=== PATIENT | female | born 1930 | race Caucasian/White ===

== ENCOUNTER 2016-10-31 13:01 | Emergency (ER) | payer MEDICARE, OTHER ==
[2016-10-31 11:45] LABS: BASOPHILS 0.1 %; BASOPHILS ABSOLUTE 0.01 10/3/uL (0.0-0.16); EOSINOPHILS 0.9 %; EOSINOPHILS ABSOLUTE 0.08 10/3/uL (0.0-0.53); HEMATOCRIT 43.9 % (36.0-48.0); HEMOGLOBIN 14.6 g/dL (12.0-16.0); IMMATURE GRANULOCYTES 0.2 %; IMMATURE GRANULOCYTES ABSOLUTE 0.02 10/3/uL (0.0-0.11); LYMPHOCYTES 11.7 %; LYMPHOCYTES ABSOLUTE 1.08 10/3/uL (0.67-4.30); MEAN CORPUS HGB CONC 33.3 g/dL (32.0-36.0); MEAN CORPUSCULAR HEMOGLOB 29.5 pg (26.0-34.0); MEAN CORPUSCULAR VOLUME 88.7 fL (80-100); MONOCYTES ABSOLUTE 0.83 10/3/uL (0.21-1.20); NEUTROPHILS 78.1 %; NEUTROPHILS ABSOLUTE 7.19 10/3/uL (2.02-8.40); PLATELET COUNT 286 10/3/uL (150-400); RBC DISTRIBUTION WIDTH 14.4 % (12.0-16.0); RED CELL COUNT 4.95 10/6/uL (4.0-5.6)
[2016-10-31 11:47] LABS: ER CBC TAT 0 Hrs 02 Mins; MANUAL DIFF NO %; WHITE BLOOD CELLS 9.2 10/3/uL (4.5-10.5)
[2016-10-31 11:53] LABS: ASCORBIC ACID (UR NOT ORDER) NEG (NEG); BILIRUBIN, URINE NEGATIVE (NEG); ER URINALYSIS TAT 0 Hrs 12 Mins; KETONE, URINE NEGATIVE (NEG); LEUKOCYTE ESTERASE(NOT OR NEG (NEG); NITRITE (URINE) NEG (NEG); WBC (NOT ORDERED) (RFLEX) 1 (0-5)
[2016-10-31 12:02] LABS: ALBUMIN 3.5 G/DL (3.5-5.0); ALKALINE PHOSPHATASE 58 U/L (45-117); BUN (BLOOD UREA NITROGEN) 13 MG/DL (6-23); CHLORIDE, SERUM 104 MMOL/L (96-112); CO2 (CARBON DIOXIDE) 30 MMOL/L (24-34); CREATININE 0.98 MG/DL (0.55-1.02); GFR AFRICAN AMERICAN 61 ML/MIN (>=60); GFR NON AFRICAN AMERICAN 53 ML/MIN (>=60); GLOBULIN 3.6 G/DL (2.5-4.1); GLUCOSE, SERUM 142 MG/DL (60-99); POTASSIUM, SERUM 3.4 MMOL/L (3.5-5.3); SGOT(AST) 12 U/L (5-40); SGPT(ALT) 16 U/L (5-65); SODIUM, SERUM 142 MMOL/L (135-148); TOTAL PROTEIN 7.1 G/DL (6.0-8.5)
[2016-10-31 12:04] LABS: LACTATE 1.6 MMOL/L (0.3-2.4)
[~2016-10-31 13:01] MED LIST: ACET500CAP PO; ASAB PO; CADUET5 MG/20 MG PO; CITRACAL PO; FLONASE NAS; HYZAAR 50/12.51 TAB PO; I40 PO; MULTIPLE VIT PO; NEUR300 PO; PRAVAC PO; PREV30 PO; PRILO PO; PRINZIDE1 TA1 PO; SALONPAS-HOT TOP; TYLENOL ARTH650 MG PO; VITD PO; Z100 PO
== END 2016-10-31 14:27 | disposition home or self-care (01) ==
LOC: ER 13:01
PROVIDERS: Nurse Practitioner
DX: K57.32 Diverticulitis of large intestine without perforation or abscess without bleeding (principal); I10 Essential (primary) hypertension; Z90.710 Acquired absence of both cervix and uterus; Z79.82 Long term (current) use of aspirin; Z79.899 Other long term (current) drug therapy
CPT/HCPCS: 74176; 80053; 81001; 83605; 83690; 85025; 99284; A9270-GY

== ENCOUNTER 2017-03-09 16:46 | Inpatient (IN) | payer MEDICARE, OTHER ==
[~2017-03-09] VITALS: Ht 162.6 cm; Wt 81.8 kg
--- NOTE | ~2017-03-09 | IDS ---
Interim Discharge Summary [facility] [address] [place]. [address] NAME: CAIT SOLOMON : 32 STATUS : ADM IN PAT#: [id number] AGE: 86 ADM/REG DATE : 03/09/17 MR#: [id number] REPORT SERV DATE: 03/15/17 DICTATED BY: RAJWINDER JIMENEZ DATE: 03/15/17 REPORT STATUS : Draft TRANSCRIBED BY: MODTracie DATE: 03/15/17 ADMISSION DATE: 03/09/2017 DISCHARGE DATE: Date that I started taking care of this patient is 03/12/2017. CONDITION OF THIS PATIENT: Stable for now. CODE STATUS: DNR. DIAGNOSES: 1. Acute severe colitis. 2. Acute Clostridium difficile colitis. 3. The patient is on TPN for bowel rest/bowel diversion, right now. 4. Acute encephalopathy secondary to colitis, infection, sepsis, and also from moderate dementia. 5. 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 6. 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 7. History of colon cancer status post recent colon surgery. CONSULTS OBTAINED: 1. Per family request, Infectious Disease has been consulted and they prefer seeing Dr. Bashir's who will see them tomorrow. 2. Neurology has been consulted for severe psychotic features associated with dementia - the patient has significant sundowning. BRIEF HOSPITAL COURSE: The patient is an 86-year-old female who was admitted with signs and symptoms as outlined in history and physical exam. The day that I took over the patient on 4th floor, the patient was extremely confused, agitated, tachycardic, and febrile with all signs and symptoms pointing to severe sepsis. The patient was already diagnosed with acute, severe, diffuse C. diff colitis. So, I had to move her to [facility] for a day or two to handle this issue and once we kept her on bowel rest and started her on TPN and we were able to get vancomycin p.o. by mouth only, the patient's sepsis is somewhat resolved. However, her gout flared up and she had severe pain and stiffness in the left hand and also the left leg. The patient is already on allopurinol. This was continued and I also started her on low-dose Solu-Medrol. With this, her acute attack of gout completely resolved. She was moved back to the floor and she was improving, but again took a turn downhill in the last day or so with worsening mental status and becoming extremely agitated, psychotic, confused, and seeing things. I honestly think that this is probably a combination of an overwhelming infection elsewhere in the body and also part of her chronic dementia process. The patient's code status is a DNR and we continue to treat her with vancomycin, but her daughter who is a licensed social worker has requested that we consult Dr. Bashir, Infectious Disease for overwhelming C. diff colitis and also Neurology for the worsening mental status. I have accomplished both and this patient will be taken over by one of my colleagues on 03/16/2017. Interim Discharge Summary [address] [place]. [address] NAME: CAIT SOLOMON : 32 STATUS : ADM IN PAT#: [id number] AGE: 86 ADM/REG DATE : 03/09/17 MR#: [id number] REPORT SERV DATE: 03/15/17 DICTATED BY: RAJWINDER JIMENEZ DATE: 03/15/17 REPORT STATUS : Draft TRANSCRIBED BY: NEISHA DATE: 03/15/17 MASTER/NEISHA Rajwinder Jimenez M.D. / [id number] CC: Luiz Hernandez M.D.
--- NOTE | ~2017-03-09 | DS ---
Discharge Summary [facility] [address] [facility] [place]. [address] NAME: CAIT SOLOMON : 32 STATUS : DIS IN PAT#: [id number] AGE: 86 ADM/REG DATE : 03/09/17 MR#: [id number] REPORT SERV DATE: 03/26/17 DICTATED BY: RAJWINDER JIMENEZ DATE: 03/25/17 REPORT STATUS : Draft TRANSCRIBED BY: MODL DATE: 03/25/17 ADMISSION DATE: 03/09/2017 DISCHARGE DATE: 03/25/2017 CODE STATUS: The patient is DNR. DISPOSITION: The patient is being transferred to custodial facility with hospice. DIAGNOSES: 1. Acute on chronic encephalopathy, probably toxic metabolic and also part of advanced dementia with psychosis - this is controlled with medications. 2. Chronic encephalopathy secondary to worsening dementia with psychotic features - controlled with Seroquel and p.r.n. Ativan. 3. Recent diagnosis of Clostridium difficile colitis - diarrhea has resolved and this is stable and the patient continues to be on p.o. vancomycin for this. She was on IV Flagyl as she had poor oral intake and now IV Flagyl has been stopped. 4. Recent history of colon cancer status post partial colon resection for the colon cancer. 5. Vbdd-ze-aqsusnqd dementia with acute advancement within the last few months. 6. Sepsis secondary to Clostridium difficile colitis, which has resolved. 7. Malnutrition - The patient has received IV TPN for close to two weeks, and now per family request, she is only on soft pureed diet by mouth and on Ensure for nutrition. BRIEF HOSPITAL COURSE: The patient is an 86-year-old female patient, who was admitted on 03/09/2017 with acute encephalopathy secondary to sepsis likely source acute colitis from C diff infection. was noted to have recent C diff also and hence the patient was essentially admitted for this. The patient was started on p.o. vancomycin. However, as the patient was extremely confused and noted to have significant criteria for sepsis upon admission, she was transferred to [facility] for a brief period. The patient improved after she was started on TPN and all oral intake was held. So with bowel rest and TPN and with only oral vancomycin, the patient's condition improved, and she was transferred out of [facility] to a regular floor again. The patient continued to be on TPN. However, her mental status was fluctuating. Hence, Neurology consult was obtained. Neurology diagnosed her with mild-to- moderate baseline dementia with worsening because of multifactorial reasons. Hence, they started her on Exelon patch and also on Remeron. The patient continued to be on Seroquel for agitation and psychosis and also on Ativan for severe agitation and aggressive behavior. She improved with all the above medications. ID was also consulted for the C. diff colitis. Dr. Bashir consulted on the patient, and for a brief period, the patient was also on IV Flagyl as her oral intake was poor. After multiple discussions with family, the patient's code status has been do not resuscitate status. However, upon discussion with family again in the last day or two, both and daughter, Lonny, who is a social media marketer has been updated regarding the patient's condition and situation, and they preferred to have hospice care for the patient. Hence, hospice was consulted appropriately. [facility] and other hospice were consulted per family preference. Hence, family is agreeable to hospice and the patient is being transferred to a long-term Discharge Summary [address] [address] NAME: CAIT SOLOMON : 32 STATUS : DIS IN PAT#: [id number] AGE: 86 ADM/REG DATE : 03/09/17 MR#: [id number] REPORT SERV DATE: 03/26/17 DICTATED BY: RAJWINDER JIMENEZ DATE: 03/25/17 REPORT STATUS : Draft TRANSCRIBED BY: MODTracie DATE: 03/25/17 care facility/SNF with hospice on 03/25/2017. The patient will continue to be on the following medications, vancomycin 125 mg p.o. q.6 hours, duration and dosage to be please determined and advised by ID. Regarding her dementia with psychosis, the patient will continue to be on the following medications; 1. Remeron 15 mg p.o. at bedtime. 2. Exelon patch 4.6 mg topical patch. 3. Seroquel 12.5 mg in the morning and 25 mg at bedtime. 4. Ativan 1 mg p.o. t.i.d. p.r.n. for severe agitation. The patient will continue to stay on a pureed diet at this time and depend on Ensure one can twice a day for nutrition. The patient at present is calm and is not agitated as long as she is on the above regimen. Hence, the patient is being transferred to a custodial facility with the above medications and with hospice care. I have spent about 35 to 40 minutes in coordinating discharge care of this patient including ivey-hv-diij encounter and summarizing this discharge. MASTER/NEISHA Rajwinder Jimenez M.D. / [id number] CC: Luiz Hernandez M.D.
--- NOTE | ~2017-03-09 | HP ---
History And Physical [place] [address] [facility] [place]. [address] NAME: CAIT SOLOMON : 32 STATUS : ADM IN PAT#: [id number] AGE: 86 ADM/REG DATE : 03/09/17 MR#: [id number] REPORT SERV DATE: 03/10/17 DICTATED BY: JEVON [place] DATE: 03/09/17 REPORT STATUS : Draft TRANSCRIBED BY: MODL DATE: 03/09/17 DATE OF ADMISSION: 03/09/2017 CHIEF COMPLAINT: Confusion. HISTORY OF PRESENT ILLNESS: The patient is an 86-year-old female with past medical history of hypertension, colon cancer with recent resection by Dr. Nilesh Rangel at [facility] four weeks ago, who presents after having confusion today, was seen by Dr. Rangel yesterday in her usual state and usual mental state per family, but this morning was more confused. Family reports that she has had diarrhea type episodes with multiple bowel movements over the last week, although, she was on scheduled stool softeners up to four times a day. Took one dose Imodium 48 hours ago and has not had bowel movement all day today, but did have bowel movement yesterday, although, this was more regular. All day today, she has not really had been as interactive, slightly disoriented, was seen by home health, had a fever of 100.6, pulse rate at that time was 96, and normal cardiac, was also noted to have mild rhonchi on the right lower lobe appreciated at this time. Does not have any shortness of breath currently. Symptoms have been constant, mild confusion, no pain radiating symptoms except for on bilateral lower toes which she has acute gout flare which she has had in the last three years. The patient has additionally increased weakness today, mild fever. No chills, shortness of breath. Denies any belly pain. Does not have any cough currently. There are no worsening or relieving symptoms except for time which the patient's mental status has slowly improved, still not at her baseline. REVIEW OF SYSTEMS: Positive per who is at bedside. Otherwise, the patient denies any acute review of systems. PAST MEDICAL HISTORY: Obtained from and on phone call with daughter in [place], who is a social security assessor, Ms. Mukherjee. History of hypertension, but says that she is off blood pressure medications. Colon cancer, recently resected by Dr. Nilesh Rangel. SURGICAL HISTORY: Colon cancer resection, hysterectomy. SOCIAL HISTORY: Accompanied by . No smoking, alcohol, or illicits. EKG: Sinus rhythm, PACs. MEDICATIONS: Slight discrepancy between reported and from family. Allopurinol, Xanax p.r.n. Family denies taking Norvasc anymore, hydrochlorothiazide or Hyzaar. The patient is on vitamin D, Colace which was scheduled four times a day, down to two times a day. Has taken Imodium 48 hours ago. On Neurontin, also declines Remeron, is on Zofran, Protonix, Pravachol, Inderal, and melatonin. ALLERGIES: NO KNOWN DRUG ALLERGIES. PHYSICAL EXAMINATION: History And Physical [address] [address] NAME: CAIT SOLOMON : 32 STATUS : ADM IN [facility]#: [id number] AGE: 86 ADM/REG DATE : 03/09/17 MR#: [id number] REPORT SERV DATE: 03/10/17 DICTATED BY: JEVON [place] DATE: 03/09/17 REPORT STATUS : Draft TRANSCRIBED BY: NEISHA DATE: 03/09/17 VITAL SIGNS: The patient's blood pressure is 121/52, temperature 99.6, pulse 81, respirations 24, O2 sats initially 90 up to 95% on 2 L. GENERAL: Well developed, well nourished. EYES: No scleral icterus. EOMI. Mild dry mucous membranes. Nose, throat, nares patent. Tongue midline. NECK: Supple. CHEST: Equal chest expansion. No increased AP diameter. RESPIRATORY: Clear to auscultation. No wheezes. Mildly decreased in lower lung moseley. CARDIAC: Cap refill less than 2 seconds. Mildly tachycardic. Mild systolic 1/6 ejection murmur. No rubs or gallops. No pedal edema. GI: Soft, nontender. No rebound. Nondistended. No gross irritation or fluid wave. EXTREMITIES: Moves all extremities. Does have redness in bilateral big toes. Mildly tender to flexion. NEURO: Alert to person and family member, but not to situation and place. Moves all extremities. PSYCH: Appropriate mood and affect. SKIN: Warm and dry. Redness at bilateral first digits. LABORATORY DATA: Troponin negative. CBC; WBC count 16.6, H and H 11.5 and 35.4, platelets 425. INR 1.3. CMP: Procalcitonin 0.16. Sodium of 131, potassium 3.5, chloride 96, BUN and creatinine 13 and 0.99, glucose of 107, alkaline phosphatase 66. AST and ALT 23 and 12. Urinalysis, negative leukocyte esterase and nitrites. Lactate 1.3. CT noted for pancolitis, sigmoid diverticulosis, mild gallbladder dilatation, but no gallbladder thickening, parapelvic renal cysts bilaterally. ASSESSMENT AND PLAN: 1. Acute encephalopathy. 2. Pancolitis. 3. Possible sepsis. 4. Acute gout flare. 5. Diarrhea. 6. Mild hypoxia. PLAN: 1. For acute encephalopathy, check ammonia, pancolitis, IV antibiotics, IV fluids, history of C diff exposure with . Monitor oxygen saturation as the patient was mildly hypoxic at 90% on room air, improved to 92% on arrival, ICS. 2. Pancolitis, C diff, stool studies, IV Zosyn given in the emergency room. We will continue. Start vancomycin p.o. until ruled out. 3. Possible sepsis with fever 100.6, respiratory rate 27, WBC count 16,000. Has improved fever profile and respiratory rate. Zosyn started. Lactate within normal limits. We will repeat a.m. chest x-ray. Outside reports noted to have right lower lobe rhonchi, not currently appreciated, but does have decreased respiratory sounds, possible atelectatic. Procalcitonin mildly elevated. Lactate within normal limits. Monitor clinical gout flare, supportive treatment. Additionally, on allopurinol. Check uric acid in a.m. No prednisone secondary to pancolitis. 4. Diarrhea, was recently on stool softeners four times a day due to recent surgery, History And Physical [address] [address] NAME: CAIT SOLOMON : 32 STATUS : ADM IN [facility]#: [id number] AGE: 86 ADM/REG DATE : 03/09/17 MR#: [id number] REPORT SERV DATE: 03/10/17 DICTATED BY: JEVON [place] DATE: 03/09/17 REPORT STATUS : Draft TRANSCRIBED BY: MODL DATE: 03/09/17 decreased to two times a day, taken Imodium approximately 48 hours and has stopped. Having diarrhea, but now has not had a bowel movement today. We will check stool studies due to the pancolitis. Monitor clinical exam and serial lactate. 5. Mild hypoxia. We will check chest x-ray in a.m., two-view. To followup and ICS. I have spoken additionally with the patient's daughter, Ms. Mukherjee, lives in [place], [place], social work, requesting Dr. Bashir consult secondary to history of father having near fatal colitis with C. diff seven years ago, and reports that Dr. Bahsir had explained that the patient may also be at risk in the past and there may need to be additional education to family for acute situation. We will courtesy notify Dr. Bashir for situation. Labs ordered. Contact precautions until C diff ruled out. All questions answered to the patient and family at bedside. Anticipate greater than two midnight inpatient stay. DDN/MODL Jevon [place] MD / [id number] CC: Luiz Hernandez M.D.
--- NOTE | ~2017-03-09 | CN ---
Consultation Report [facility] [address] [place]. [address] NAME: CAIT SOLOMON : 32 STATUS : ADM IN PAT#: [id number] AGE: 86 ADM/REG DATE : 03/09/17 MR#: [id number] REPORT SERV DATE: 03/12/17 DICTATED BY: ERWIN CASH DATE: 03/11/17 REPORT STATUS : Draft TRANSCRIBED BY: MODL DATE: 03/11/17 UROLOGY CONSULT DATE OF CONSULTATION: 03/11/2017 This consult is from Dr. Perez regarding inability to place Slaughter catheter and urinary retention. CHIEF COMPLAINT: They cannot get a tube in ms. HISTORY: This is an 86-year-old woman who was admitted for sepsis. She had a colon resection for colon cancer a month ago. She presented to the emergency room with confusion and diarrhea. She is found to be C diff positive. She has vaginal prolapse. Nursing has been unable to place a Slaughter catheter since last night. Several of the nurses from the catheter team have been unable to place catheter. Postvoid residual urine by bladder scan shows 300 mL in her bladder. Strict I's and O's are necessary due to her septic state. We are called for catheter placement. The patient denies any difficulty voiding; however, she is currently quite ill and is not answering all history questions appropriately. PAST MEDICAL HISTORY: Colon cancer, hypertension, gout, gastroesophageal reflux disease, hyperlipidemia. SURGICAL HISTORY: Colon cancer resection and hysterectomy. MEDICATIONS: On admission were allopurinol, Xanax, Norvasc, vitamin D, Colace, Neurontin, hydrochlorothiazide, Hyzaar, melatonin, Remeron, Zofran, Protonix, Pravachol, and Inderal. ALLERGIES: NO KNOWN DRUG ALLERGIES. SOCIAL HISTORY: She is . Denies any alcohol or tobacco use. REVIEW OF SYSTEMS: VITAL SIGNS: She has been febrile. GENERAL: She is in mild distress. NEUROLOGIC: She is confused. PSYCHIATRIC: She is anxious. GI: As above. : Denies symptoms. MUSCULOSKELETAL: As above. PHYSICAL EXAMINATION: VITAL SIGNS: T-max 100.3, blood pressure 101/51, pulse 110, respirations 21. I's and O's yesterday, 2382 mL in and 404 mL out were recorded. GENERAL: She is in mild distress. NEUROLOGIC: She is alert, but not oriented. Consultation Report [place] [address] [place]. [address] NAME: CAIT SOLOMON : 32 STATUS : ADM IN PAT#: [id number] AGE: 86 ADM/REG DATE : 03/09/17 MR#: [id number] REPORT SERV DATE: 03/12/17 DICTATED BY: ERWIN CASH DATE: 03/11/17 REPORT STATUS : Draft TRANSCRIBED BY: NEISHA DATE: 03/11/17 PSYCHIATRIC: Anxious. HEENT: Facial features symmetric. Eyes, sclerae anicteric. NECK: Supple. LUNGS: Decreased inspiratory effort bilaterally. HEART: Slightly tachycardic. ABDOMEN: Soft, diffusely tender. Bladder not palpable. : Reveals vaginal atrophy with vaginal prolapse which appears to be rectocele or enterocele. She has bilateral lower extremity edema left greater than the right with swelling and erythema in her left foot consistent with gout. LABORATORY STUDIES: Today, her white blood cell count is up to 20.1 from 16.6, hemoglobin is 10.8, hematocrit 32.3, platelets of 380. Her creatinine is 0.69. CT scan showed diffuse colitis. IMPRESSION: Vaginal prolapse with difficult catheter placement. PROCEDURE: The patient was placed in Trendelenburg and then frog-leg position. The area was prepped and draped. Her vaginal prolapse was reduced. A 14-Swedish coude catheter was passed blindly over the top of my hand, which was blocking her vaginal opening. After several attempts, the catheter passed into her bladder. The balloon was inflated with 10 mL of sterile water. The balloon was seated at her bladder neck. Approximately 80 to 100 mL of concentrated urine drained into the bag. The Slaughter catheter was secured to the patient using a cath secure device by nursing. PLAN: 1. Slaughter catheter may be removed at the primary team's discretion. 2. No urologic followup is needed. Thank you for this consult. BONNIE/NEISHA Erwin Cash M.D. / [id number] CC: Tyra Perez M.D.
--- NOTE | ~2017-03-09 | IDS ---
Interim Discharge Summary [facility] [address] [place]. [address] NAME: CAIT SOLOMON : 32 STATUS : ADM IN PAT#: [id number] AGE: 86 ADM/REG DATE : 03/09/17 MR#: [id number] REPORT SERV DATE: 03/19/17 DICTATED BY: JR. BENNETT WILLIAM JOHN DATE: 03/19/17 REPORT STATUS : Draft TRANSCRIBED BY: NEISHA DATE: 03/19/17 ADMISSION DATE: 03/09/2017 DISCHARGE DATE: This is an interim summary covering the time period from 03/16/2017 through 03/19/2017. WORKING DIAGNOSES: Include: 1. Right upper extremity swelling with hand warmth. 2. Nausea, vomiting with some hematemesis, likely Ruby-Erazo tear. 3. Clostridium difficile colitis with leukocytosis. 4. Toxic and metabolic encephalopathy. 5. Poor oral intake, on TPN. 6. Reported history of gout. 7. History of colon cancer status post surgery in December 2016. OPERATIONS PROCEDURES AND TREATMENTS DURING THIS TIME PERIOD: Include: 1. MRI of the brain done 03/16/2017 which showed no evidence of acute intracranial pathology. There was mild age-appropriate volume loss. There were many small areas of perivascular spaces throughout the supratentorial white matter and basal ganglia. There was small mastoid effusion with mild ethmoid effusion and a small parafalcine meningioma. 2. CT of the abdomen and pelvis done 03/18/2017 which showed liquid stools in the rectum. There was prominent presacral soft tissue which was new, possibly representing inflammation. There was no diffuse ileus. 3. Venous Doppler ultrasound of the right upper extremity is pending. DISCUSSION: 1. Regarding the patient's delirium, the patient had previously been on fairly high doses of antipsychotic medication. She underwent an MRI of the brain which showed no acute pathology. Her doses were adjusted to regulate the sleep cycle, and the patient is gradually regaining lucidity. During this time period, she was unable to the eat and was placed on TPN prior to my assumption of care. The patient will be tried on a full liquid diet, if she has fair oral intake, would stop TPN. 2. Regarding the C. diff colitis, the patient is on oral vancomycin. She was unreliably able to swallow the vancomycin. Therefore, she is also on IV Flagyl for now. Recommendation is a four-week taper of vancomycin. 3. Regarding nausea and vomiting, yesterday, the patient had nausea and vomiting with a small amount of blood in the emesis. This likely represents a Ruby-Erazo tear. She has had no decline in her hemoglobin level nor recurrence. The patient had a CT of the abdomen and pelvis which did not show ileus. 4. The patient also has right upper extremity hand swelling. This may represent gout, however, given the difficulties with mental status and nutrition, I have chosen at this point to check an ultrasound to make sure there is not a clot and to address the right hand swelling later if ultrasound is negative. My partner will assume care of this patient in the morning. Interim Discharge Summary [address] [place]. [address] NAME: CAIT SOLOMON : 32 STATUS : ADM IN PAT#: [id number] AGE: 86 ADM/REG DATE : 03/09/17 MR#: [id number] REPORT SERV DATE: 03/19/17 DICTATED BY: JR. BENNETT WILLIAM JOHN DATE: 03/19/17 REPORT STATUS : Draft TRANSCRIBED BY: NEISHA DATE: 03/19/17 ARTHUR/NEISHA Salvador Bennett Jr, MD / [id number] CC: Salvador Bennett Jr, MD Shannon McCallie, M.D.
--- NOTE | ~2017-03-09 | CN ---
Consultation Report [facility] [address] [place]. [address] NAME: CAIT SOLOMON : 32 STATUS : ADM IN PAT#: [id number] AGE: 86 ADM/REG DATE : 03/09/17 MR#: [id number] REPORT SERV DATE: 03/16/17 DICTATED BY: ERASTO BASHIR DATE: 03/16/17 REPORT STATUS : Draft TRANSCRIBED BY: MODL DATE: 03/16/17 INFECTIOUS DISEASE CONSULTATION DATE OF CONSULTATION: 03/16/2017 REASON FOR CONSULTATION: C diff colitis. HISTORY OF PRESENT ILLNESS: This is an 86-year-old female with a past medical history notable for recent diagnosis of colon cancer for which she underwent a surgical therapy about a month ago by Dr. Rangel. She went to [facility] after that and then came home. The history is obtained from the patient's and daughter. They say she had some loose stools for some time after her surgery, but then last week she developed worsening mental status and fever up to 100.6 and was brought to the emergency department at [facility] late on the afternoon of 03/09/2017. She was found to have tachypnea and white blood cell count of 16.1, low-grade fever, and underwent imaging studies that included a CT scan of the abdomen and pelvis, which was consistent with a pancolitis picture. Stool was sent for C diff and returned positive. She has been on oral vancomycin since 03/10/2017. She was in the intermediate care unit and was evaluated by Surgery, but has shown slow improvement. Her fevers have resolved, her diarrhea is improving, and her white blood cell count is finally much improved today, down to 11.1. She continued to have poor mental status and is being evaluated by Neurology for that. She denies pain. The patient apparently received a course of oral antibiotics while at [facility] for urinary tract infection along with perioperative antibiotics until the time of her surgery. PAST MEDICAL HISTORY: Includes hypertension, gout, and hyperlipidemia. PAST SURGICAL HISTORY: Hysterectomy. ALLERGIES: NO KNOWN DRUG ALLERGIES. MEDICATIONS: Present medications in addition oral vancomycin include allopurinol, Colace, Lovenox, Neurontin, insulin, Protonix, and Seroquel. SOCIAL HISTORY: She lives with her of 62 years. Nonsmoker and nondrinker. Prior to her surgery for colon cancer, she was quite independent and did chores in and around the house. Her daughter notes some progressive mild forgetfulness. FAMILY HISTORY: Notable for history of severe C diff colitis in her , otherwise, noncontributory. REVIEW OF SYSTEMS: Difficult to obtain from the patient right now, but as mentioned, she does deny pain including abdominal pain. Her diarrhea is improving. No chest pain or shortness of breath. She has had no bleeding or bruising issues. Consultation Report [facility] [id number] [place]. [address] NAME: CAIT SOLOMON : 32 STATUS : ADM IN PAT#: [id number] AGE: 86 ADM/REG DATE : 03/09/17 MR#: [id number] REPORT SERV DATE: 03/16/17 DICTATED BY: ERASTO BASHIR DATE: 03/16/17 REPORT STATUS : Draft TRANSCRIBED BY: NEISHA DATE: 03/16/17 PHYSICAL EXAMINATION: VITAL SIGNS: The patient weighs 79 kg, afebrile; blood pressure 138/68, it was as low as 83/71 during the early part of the admission; pulse 98, it was as high as 110; respiratory rate 16, it was as high as 24; oxygen saturation 94% on 2 L. GENERAL: She is sitting up in bed. She is awake and alert and does follow simple commands, but has minimal verbal responses to questions. HEAD AND NECK: Extraocular movements are intact. The oral cavity shows no thrush. Neck is supple. LUNGS: Clear to auscultation anteriorly. CARDIAC: Regular rate and rhythm. Normal S1 and S2, with a soft systolic ejection murmur at the left sternal border. ABDOMEN: Bowel sounds are present, but reduced. The abdomen is not significantly distended. Quite soft. No significant tenderness to palpation. : A Slaughter catheter is in place. EXTREMITIES: Show edema of her lower legs and feet. She has a PICC line in her right upper extremity. SKIN: Without rash. LABORATORY STUDIES: White blood cell count today 11.1, hemoglobin 10.0, platelets 338. Creatinine 0.50. Albumin 2.0. Liver function tests are normal. Her prealbumin on 03/11/2017 was less than 3.0; on 02/09/2017, it was 18.9. Microbiology studies on admission, blood cultures were negative. Other stool studies were negative except for the C diff. Blood cultures were obtained on 03/14/2017, one of two sets was positive for coagulase-negative Staph. Urinalysis was negative x2 that day. Imaging studies are as outlined above. 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 IMPRESSION: Clostridium difficile colitis with sepsis on admission. She has improved. She has had no further fever and her white blood cell count has essentially normalized today and her diarrhea seems to be resolving. She does have encephalopathy and is to undergo an MRI of the brain today, but I suspect this is due to the usual inpatient factors in someone who has a poor neurologic reserve. She is though taking her vancomycin. PLAN: 1. We will continue oral vancomycin. Plan a prolonged tapering course over weeks. 2. I would like to try to discontinue the Slaughter and a PICC line soon to decrease her risk of hospital-acquired infection and the need for additional antibiotics. BOLIVAR/NEISHA Erasto Bashir, Consultation Report [address] [place]. [address] NAME: CAIT SOLOMON : 32 STATUS : ADM IN PAT#: [id number] AGE: 86 ADM/REG DATE : 03/09/17 MR#: [id number] REPORT SERV DATE: 03/16/17 DICTATED BY: ERASTO BASHIR DATE: 03/16/17 REPORT STATUS : Draft TRANSCRIBED BY: NEISHA DATE: 03/16/17 Luiz / [id number] CC: Salvador Bennett Jr, MD Shannon McCallie, M.D.
--- NOTE | ~2017-03-09 | CN ---
Consultation Report [facility] [address] [place]. [address] NAME: CAIT SOLOMON : 32 STATUS : ADM IN PAT#: [id number] AGE: 86 ADM/REG DATE : 03/09/17 MR#: [id number] REPORT SERV DATE: 03/16/17 DICTATED BY: DATE: REPORT STATUS : Draft TRANSCRIBED BY: MODL DATE: 03/16/17 NEUROLOGY CONSULTATION DATE OF CONSULTATION: 03/16/2017 REASON FOR CONSULT: Encephalopathy. HISTORY OF PRESENT ILLNESS: This is an 86-year-old female who has had recent diagnosis of colon cancer status post colon resection but has not had any chemotherapy or radiation therapy, presented to [facility] secondary to severe diarrhea for which the patient was diagnosed with C. diff infection and subsequently undergoing treatment. During the hospital stay, the patient was noted to have increasing confusion with the patient being combative, agitated as well as confused, disoriented, and with reports of hallucination. The patient's symptom is currently controlled with Seroquel for which the patient's family reports lethargy with Seroquel and sleepiness. The patient's symptoms appeared to have some waxing and waning characteristic with the patient on 03/15/2017, having had brief episodes of lucidity for which the patient was able to sit by the side of the bed and interact with the family member very briefly but the patient was largely agitated otherwise. The patient's family reports at baseline the patient was noted to have some memory difficulties with the patient seeming to be increasingly forgetful, have difficulties, ask questions over and over again. Definitely having difficulties managing medications. The patient's family it is unclear whether or not the patient is taking the medication as prescribed. The patient seems to be doing okay in certain areas but has difficulties with memory and recent memory recall. The patient seems to have some difficulties with driving and preferred to have drive her instead. The patient otherwise does not have any recent fever or chills or shortness of breath and no other recent changes in medications. The patient was recently in rehab after her colon resection. She is scheduled for Neurology evaluation in June but has not had any formal neurology evaluation or checkup. The patient has family denies any focal weakness but reports bilateral lower extremity edema with the patient baseline does have some chronic left lower extremity edema. REVIEW OF SYSTEMS: Negative except for those mentioned in the HPI. PAST MEDICAL HISTORY: At the time of evaluation, the patient's past medical history is significant for history of hypertension as well as history of recently resected colon cancer, possible gout as well as left lower extremity chronic edema that is recently worse. The patient was also noted to have baseline cognitive difficulties concerning for dementia and history of previous mini stroke in the past. SOCIAL HISTORY: Denies tobacco, alcohol, or recreational drug usage. ALLERGIES: THE PATIENT REPORTS NO KNOWN DRUG ALLERGIES. Consultation Report [address] [place]. [address] NAME: CAIT SOLOMON : 32 STATUS : ADM IN PAT#: [id number] AGE: 86 ADM/REG DATE : 03/09/17 MR#: [id number] REPORT SERV DATE: 03/16/17 DICTATED BY: DATE: REPORT STATUS : Draft TRANSCRIBED BY: NEISHA DATE: 03/16/17 FAMILY HISTORY: No significant family history was otherwise reported by the patient. CURRENT MEDICATIONS: Contain Colace; TPN; Levemir; Lidoderm; Lovenox; Neurontin; Novolin; Protonix; Seroquel; vancomycin; allopurinol; and Dilaudid. The patient was also provided with Dilaudid and Xanax. PHYSICAL EXAMINATION: VITAL SIGNS: Overnight the patient was noted to have vital signs with T-max of 97.9, heart rate of 86 to 118, respirations of 18 to 20, and blood pressure of 136 to 189 over 66 to 81. GENERAL: The patient is well developed, well nourished, in no acute distress. CARDIOVASCULAR EXAMINATION: Regular rate and rhythm. No carotid bruits were otherwise auscultated. PULMONARY: Examination was clear to auscultation bilaterally. NEUROLOGICAL EXAMINATION: The patient was obtunded but arousable with tactile as well as verbal stimulation. Dysarthria was noted with the patient have difficulties with some verbal communication. Does not answer orientation question and does not follow commands. Cranial nerves 2 through 12. Pupils equal, round, and reactive to light. Horizontal eye movement was noted with oculocephalic maneuver with the patient demonstrated [id number] response. Symmetrical grimace with the patient noted to have grimace to noxious stimulation for bilateral jaws. The patient appeared to have tongue in the midline position. The patient demonstrated no spontaneous movement of bilateral upper and lower extremity with the patient noted to have difficulties maintaining arm elevations with passive motion. The patient does demonstrate grimace to noxious stimulation but no withdrawal or posturing. Deep tendon reflex was 1+ throughout. Gait and cerebellar evaluation were not performed secondary to the patient's mental status. LABORATORY STUDIES: Demonstrated white blood cell count of 11.1, hemoglobin of 10.0, hematocrit of 30.6, and platelet count of 338. Chemistry panel: Sodium 138, potassium 3.9, chloride of 107, bicarb of 25, BUN of 35, creatinine of 0.50, glucose of 143, calcium of 8.5, and magnesium 1.8. CT scan of the brain was reviewed. Generalized atrophy was noted but otherwise no acute process was seen. IMPRESSION: Encephalopathy. The patient was noted to have some baseline concern of possible dementia with increased forgetfulness for the past year with recently agitation, confusion as well as combativeness and hallucinations since the hospital stay. That seems to be controlled on Seroquel. Also patient appeared to be sedated on Seroquel. The patient, in addition, was also recently diagnosed with colon cancer status post colon resection as well as C. diff infection with the patient's family reports poor appetite since 2015. Concern for multifactorial etiology for encephalopathy including dementia, hospital-acquired delirium as well as metabolic encephalopathy due to poor nutrition as well as recent infection. We will check laboratory studies including vitamin B12, folate, TSH, and free T4. In addition, we will also check MRI of the brain with and without contrast and we will provide the patient with thiamine supplementation. We will change the Seroquel to 12.5 mg p.o. b.i.d. We will provide the patient with p.valente Snyder in case the patient has Consultation Report [facility] [id number] [place]. [address] NAME: CAIT SOLOMON MARY : 32 STATUS : ADM IN PAT#: [id number] AGE: 86 ADM/REG DATE : 03/09/17 MR#: [id number] REPORT SERV DATE: 03/16/17 DICTATED BY: DATE: REPORT STATUS : Draft TRANSCRIBED BY: MODL DATE: 03/16/17 difficulty swallowing. In addition, we will also start the patient on trial of Aricept. RECOMMENDATIONS: 1. MRI of the brain with and without contrast. 2. Change the Seroquel to 12.5 mg p.o. b.i.d. 3. Geodon 10 mg IM q.12 hours as needed for agitation. 4. Thiamine 100 mg IV daily. 5. Aricept 5 mg p.o. at bedtime. 6. Vitamin B12, folate, TSH, free T4 level. [facility]/MODL Kaden Piedra MD / [id number] CC: Luiz Hernandez M.D.
--- NOTE | ~2017-03-09 | CN ---
Consultation Report [facility] [address] [address] NAME: CAIT MILLIGAN : 32 STATUS : ADM IN PAT#: [id number] AGE: 86 ADM/REG DATE : 03/09/17 MR#: [id number] REPORT SERV DATE: 03/11/17 DICTATED BY: DATE: REPORT STATUS : Draft TRANSCRIBED BY: MODL DATE: 03/11/17 DATE OF CONSULTATION: 03/10/2017 This dictation cannot be typed as the voice is in and out, loud then some places cannot hear anything. Very poor audio. HISTORY OF PRESENT ILLNESS: Ms. Milligan is an 86-year-old female who approximately one month ago underwent colectomy for cancer at [facility] by Dr. Rangel. She subsequently had a short stay at the rehab facility. Postoperatively, per her , did quite well. She was in her normal state of health until approximately 36 hours ago, where her said she had altered mental status. They called her doctor. They told her to come to the emergency room. Examination in the emergency room revealed an febrile, tachycardic patient with a white count of 1600. Prior to this, she did have several bouts of diarrhea (inaudible, poor sound) She was admitted to the floor, started on IV fluids and IV antibiotics. She subsequently underwent stool studies, which showed positive C diff as well as CT scan which showed pancolitis. PAST MEDICAL HISTORY: Significant for colon cancer . PAST SURGICAL HISTORY: Includes . ALLERGIES: SHE HAS NO KNOWN DRUG ALLERGIES. SOCIAL HISTORY: She does not smoke, does not drink, does not do drugs. FAMILY HISTORY: Denies. REVIEW OF SYSTEMS: Significant for altered mental status (inaudible) . MEDICATIONS: Medicines include (inaudible) home medications, antihypertensives . PHYSICAL EXAMINATION: GENERAL: The patient is awake, oriented to person, poor historian. She is tachycardic. LUNGS: She is clear to auscultation bilaterally. ABDOMEN: Slightly tympanic with pain along the lower quadrant . Positive bowel sounds. EXTREMITIES: She has no peripheral edema, but she . LABORATORY DATA: Laboratory examination from yesterday revealed white count of 16.6, positive C diff. ASSESSMENT AND PLAN: An 86-year-old female with Clostridium difficile colitis. Recommend Consultation Report [address] [place] [address] NAME: CAIT MILLIGAN MARY : 32 STATUS : ADM IN PAT#: [id number] AGE: 86 ADM/REG DATE : 03/09/17 MR#: [id number] REPORT SERV DATE: 03/11/17 DICTATED BY: DATE: REPORT STATUS : Draft TRANSCRIBED BY: NEISHA DATE: 03/11/17 making the patient n.p.o. Continue IV fluids. Discontinue IV antibiotics. Continue p.o. vancomycin. Transfer to the MICU for closer observation. Start vancomycin . G[facility]/MODL Jem Osorio MD / [id number] CC: Tyra Perez M.D.
[2017-03-09 18:49] LABS: A/G RATIO 0.6 (0.7-1.9); ALBUMIN 2.6 G/DL (3.5-5.0); BUN (BLOOD UREA NITROGEN) 13 MG/DL (6-23); CALCIUM, SERUM 8.7 MG/DL (8.5-10.4); CHLORIDE, SERUM 96 MMOL/L (96-112); CO2 (CARBON DIOXIDE) 28 MMOL/L (24-34); CREATININE 0.99 MG/DL (0.55-1.02); GFR AFRICAN AMERICAN 61 ML/MIN (>=60); GFR NON AFRICAN AMERICAN 52 ML/MIN (>=60); GLOBULIN 4.2 G/DL (2.5-4.1); GLUCOSE, SERUM 107 MG/DL (60-99); POTASSIUM, SERUM 3.5 MMOL/L (3.5-5.3); SGPT(ALT) 12 U/L (5-65); SODIUM, SERUM 131 MMOL/L (135-148); TOTAL BILIRUBIN 0.8 MG/DL (0-1.2); TOTAL PROTEIN 6.8 G/DL (6.0-8.5)
[2017-03-09 18:50] LABS: ALKALINE PHOSPHATASE 66 U/L (45-117); SGOT(AST) 23 U/L (5-40)
[2017-03-09 18:57] LABS: WBC (NOT ORDERED) (RFLEX) 0 (0-5)
[2017-03-09 19:05] LABS: LACTATE 1.3 MMOL/L (0.3-2.4)
[2017-03-09 19:10] LABS: ASCORBIC ACID (UR NOT ORDER) NEG (NEG); BILIRUBIN, URINE NEGATIVE (NEG); ER URINALYSIS TAT 0 Hrs 14 Mins; KETONE, URINE NEGATIVE (NEG); LEUKOCYTE ESTERASE(NOT OR NEG (NEG); NITRITE (URINE) NEG (NEG)
[2017-03-09 19:20] LABS: PROCALCITONIN 0.16 ng/mL (<0.5)
[2017-03-09] MEDS ORDERED: MICROZIDE PO (20:00)
[2017-03-09] MEDS ORDERED: HYZAAR 50/12.51 TAB PO (20:00)
[2017-03-09] MEDS ORDERED: PRAVAC PO (20:01)
[2017-03-09] MEDS ORDERED: PROTONIX PO (20:01)
[2017-03-09] MEDS ORDERED: X25 PO (20:03)
[2017-03-09] MEDS ORDERED: ZOFRAN4 PO (20:03)
[2017-03-09] MEDS ORDERED: VITAMIN D1000 UNI1 PO (20:03)
[2017-03-09] MEDS ORDERED: I40 PO (20:03)
[2017-03-09] MEDS ORDERED: NORV10 PO (20:04)
[2017-03-09] MEDS ORDERED: DSS PO (20:04)
[2017-03-09] MEDS ORDERED: NEUR100 PO (20:04)
[2017-03-09] MEDS ORDERED: MELATONIN5 M1 PO (20:04)
[2017-03-09] MEDS ORDERED: REM15 PO (20:04)
[2017-03-09] MEDS ORDERED: Z100 PO (20:04)
[2017-03-09 20:35] LABS: BASOPHILS 0.1 %; BASOPHILS ABSOLUTE 0.02 10/3/uL (0.0-0.16); EOSINOPHILS 0.2 %; EOSINOPHILS ABSOLUTE 0.03 10/3/uL (0.0-0.53); HEMATOCRIT 35.4 % (36.0-48.0); HEMOGLOBIN 11.5 g/dL (12.0-16.0); IMMATURE GRANULOCYTES 0.5 %; IMMATURE GRANULOCYTES ABSOLUTE 0.09 10/3/uL (0.0-0.11); LYMPHOCYTES 10.9 %; MEAN CORPUS HGB CONC 32.5 g/dL (32.0-36.0); MEAN CORPUSCULAR HEMOGLOB 26.8 pg (26.0-34.0); MEAN CORPUSCULAR VOLUME 82.5 fL (80-100); MEAN PLATELET VOLUME 8.4 fL (9.2-13.0); MONOCYTES 11.3 %; MONOCYTES ABSOLUTE 1.88 10/3/uL (0.21-1.20); NEUTROPHILS ABSOLUTE 12.75 10/3/uL (2.02-8.40); PLATELET COUNT 425 10/3/uL (150-400); RED CELL COUNT 4.29 10/6/uL (4.0-5.6)
[2017-03-09 20:36] LABS: ER CBC TAT 0 Hrs 11 Mins; WHITE BLOOD CELLS 16.6 10/3/uL (4.5-10.5)
[2017-03-09 20:37] LABS: MANUAL DIFF NO %
[2017-03-09 20:41] LABS: INTERNATIONAL NORMAL RATI 1.3 UNITS (-); PARTIAL THROMBO TIME 29.2 SEC (22.5-37.2)
[2017-03-09 20:43] LABS: PROTIME (NOT ORD) 15.6 SEC (12.0-14.5)
[2017-03-11 06:04] LABS: BASOPHILS 0 %; BASOPHILS ABSOLUTE 0.01 10/3/uL (0.0-0.16); EOSINOPHILS 0.1 %; EOSINOPHILS ABSOLUTE 0.02 10/3/uL (0.0-0.53); HEMATOCRIT 32.3 % (36.0-48.0); HEMOGLOBIN 10.8 g/dL (12.0-16.0); IMMATURE GRANULOCYTES 0.4 %; IMMATURE GRANULOCYTES ABSOLUTE 0.08 10/3/uL (0.0-0.11); LYMPHOCYTES 5.1 %; LYMPHOCYTES ABSOLUTE 1.03 10/3/uL (0.67-4.30); MANUAL DIFF NO %; MEAN CORPUS HGB CONC 33.4 g/dL (32.0-36.0); MEAN CORPUSCULAR HEMOGLOB 27.3 pg (26.0-34.0); MEAN CORPUSCULAR VOLUME 81.8 fL (80-100); MEAN PLATELET VOLUME 8.4 fL (9.2-13.0); MONOCYTES 8.1 %; MONOCYTES ABSOLUTE 1.63 10/3/uL (0.21-1.20); NEUTROPHILS 86.3 %; NEUTROPHILS ABSOLUTE 17.37 10/3/uL (2.02-8.40); PLATELET COUNT 380 10/3/uL (150-400); RBC DISTRIBUTION WIDTH 15.8 % (12.0-16.0); RED CELL COUNT 3.95 10/6/uL (4.0-5.6); WHITE BLOOD CELLS 20.1 10/3/uL (4.5-10.5)
[2017-03-11 06:18] LABS: ALKALINE PHOSPHATASE 63 U/L (45-117); CHLORIDE, SERUM 100 MMOL/L (96-112); CO2 (CARBON DIOXIDE) 24 MMOL/L (24-34); CREATININE 0.69 MG/DL (0.55-1.02); GFR AFRICAN AMERICAN 93 ML/MIN (>=60); GFR NON AFRICAN AMERICAN 80 ML/MIN (>=60); SGOT(AST) 16 U/L (5-40); SGPT(ALT) 10 U/L (5-65); SODIUM, SERUM 134 MMOL/L (135-148); TOTAL PROTEIN 5.5 G/DL (6.0-8.5)
[2017-03-11 06:20] LABS: A/G RATIO 0.5 (0.7-1.9); ALBUMIN 1.9 G/DL (3.5-5.0); BUN (BLOOD UREA NITROGEN) 7 MG/DL (6-23); CALCIUM, SERUM 7.4 MG/DL (8.5-10.4); GLOBULIN 3.6 G/DL (2.5-4.1); GLUCOSE, SERUM 162 MG/DL (60-99); POTASSIUM, SERUM 2.6 MMOL/L (3.5-5.3); TOTAL BILIRUBIN 1.5 MG/DL (0-1.2)
[2017-03-11 12:18] LABS: PHOSPHORUS, SERUM 1.9 MG/DL (2.5-4.5); TRIGLYCERIDE 66 MG/DL (< 150)
[2017-03-11 12:19] LABS: PREALBUMIN < 3.0 MG/DL (17.0-43.0)
[2017-03-12 04:14] LABS: BASOPHILS 0.1 %; BASOPHILS ABSOLUTE 0.02 10/3/uL (0.0-0.16); EOSINOPHILS 1.1 %; EOSINOPHILS ABSOLUTE 0.17 10/3/uL (0.0-0.53); HEMATOCRIT 31.4 % (36.0-48.0); HEMOGLOBIN 10.4 g/dL (12.0-16.0); IMMATURE GRANULOCYTES 0.5 %; IMMATURE GRANULOCYTES ABSOLUTE 0.08 10/3/uL (0.0-0.11); LYMPHOCYTES 7.5 %; LYMPHOCYTES ABSOLUTE 1.11 10/3/uL (0.67-4.30); MEAN CORPUS HGB CONC 33.1 g/dL (32.0-36.0); MEAN CORPUSCULAR HEMOGLOB 27.1 pg (26.0-34.0); MEAN CORPUSCULAR VOLUME 81.8 fL (80-100); MEAN PLATELET VOLUME 8.7 fL (9.2-13.0); MONOCYTES 6.2 %; MONOCYTES ABSOLUTE 0.91 10/3/uL (0.21-1.20); NEUTROPHILS 84.6 %; PLATELET COUNT 386 10/3/uL (150-400); RBC DISTRIBUTION WIDTH 15.9 % (12.0-16.0); RED CELL COUNT 3.84 10/6/uL (4.0-5.6); WHITE BLOOD CELLS 14.8 10/3/uL (4.5-10.5)
[2017-03-12 04:16] LABS: MANUAL DIFF NO %
[2017-03-12 04:36] LABS: A/G RATIO 0.5 (0.7-1.9); ALBUMIN 1.8 G/DL (3.5-5.0); ALKALINE PHOSPHATASE 61 U/L (45-117); CALCIUM, SERUM 7.6 MG/DL (8.5-10.4); CHLORIDE, SERUM 102 MMOL/L (96-112); CO2 (CARBON DIOXIDE) 23 MMOL/L (24-34); CREATININE 0.65 MG/DL (0.55-1.02); GFR AFRICAN AMERICAN 94 ML/MIN (>=60); GFR NON AFRICAN AMERICAN 82 ML/MIN (>=60); GLOBULIN 3.8 G/DL (2.5-4.1); GLUCOSE, SERUM 131 MG/DL (60-99); PHOSPHORUS, SERUM 2.1 MG/DL (2.5-4.5); POTASSIUM, SERUM 3.1 MMOL/L (3.5-5.3); SGOT(AST) 16 U/L (5-40); SGPT(ALT) 12 U/L (5-65); SODIUM, SERUM 136 MMOL/L (135-148); TOTAL PROTEIN 5.6 G/DL (6.0-8.5)
[2017-03-12 04:37] LABS: BUN (BLOOD UREA NITROGEN) 11 MG/DL (6-23)
[2017-03-13 04:28] LABS: BASOPHILS 0.1 %; BASOPHILS ABSOLUTE 0.01 10/3/uL (0.0-0.16); EOSINOPHILS 0 %; HEMOGLOBIN 11.6 g/dL (12.0-16.0); IMMATURE GRANULOCYTES 0.5 %; IMMATURE GRANULOCYTES ABSOLUTE 0.07 10/3/uL (0.0-0.11); LYMPHOCYTES 5.4 %; LYMPHOCYTES ABSOLUTE 0.69 10/3/uL (0.67-4.30); MEAN CORPUS HGB CONC 33.3 g/dL (32.0-36.0); MEAN CORPUSCULAR HEMOGLOB 27.2 pg (26.0-34.0); MEAN CORPUSCULAR VOLUME 81.5 fL (80-100); MEAN PLATELET VOLUME 8.9 fL (9.2-13.0); MONOCYTES ABSOLUTE 0.25 10/3/uL (0.21-1.20); NEUTROPHILS ABSOLUTE 11.71 10/3/uL (2.02-8.40); PLATELET COUNT 435 10/3/uL (150-400); RBC DISTRIBUTION WIDTH 16.1 % (12.0-16.0); RED CELL COUNT 4.27 10/6/uL (4.0-5.6); WHITE BLOOD CELLS 12.7 10/3/uL (4.5-10.5)
[2017-03-13 04:29] LABS: HEMATOCRIT 34.8 % (36.0-48.0); MANUAL DIFF NO %
[2017-03-13 04:32] LABS: A/G RATIO 0.5 (0.7-1.9); ALKALINE PHOSPHATASE 67 U/L (45-117); CALCIUM, SERUM 8.2 MG/DL (8.5-10.4); CHLORIDE, SERUM 104 MMOL/L (96-112); CO2 (CARBON DIOXIDE) 25 MMOL/L (24-34); CREATININE 0.61 MG/DL (0.55-1.02); GFR AFRICAN AMERICAN 96 ML/MIN (>=60); GFR NON AFRICAN AMERICAN 83 ML/MIN (>=60); GLOBULIN 4.4 G/DL (2.5-4.1); PHOSPHORUS, SERUM 2.3 MG/DL (2.5-4.5); SGOT(AST) 12 U/L (5-40); SGPT(ALT) 12 U/L (5-65); SODIUM, SERUM 138 MMOL/L (135-148); TOTAL PROTEIN 6.4 G/DL (6.0-8.5)
[2017-03-13 04:33] LABS: BUN (BLOOD UREA NITROGEN) 24 MG/DL (6-23); GLUCOSE, SERUM 204 MG/DL (60-99); POTASSIUM, SERUM 4.1 MMOL/L (3.5-5.3); TOTAL BILIRUBIN 0.4 MG/DL (0-1.2)
[2017-03-14 02:11] LABS: ASCORBIC ACID (UR NOT ORDER) NEG (NEG); BILIRUBIN, URINE NEGATIVE (NEG); KETONE, URINE NEGATIVE (NEG); LEUKOCYTE ESTERASE(NOT OR NEG (NEG); WBC (NOT ORDERED) (RFLEX) 1 (0-5)
[2017-03-14 08:22] LABS: BASOPHILS 0 %; EOSINOPHILS 0 %; HEMOGLOBIN 10.4 g/dL (12.0-16.0); IMMATURE GRANULOCYTES 0.8 %; IMMATURE GRANULOCYTES ABSOLUTE 0.14 10/3/uL (0.0-0.11); LYMPHOCYTES ABSOLUTE 0.69 10/3/uL (0.67-4.30); MEAN CORPUS HGB CONC 33.5 g/dL (32.0-36.0); MEAN CORPUSCULAR HEMOGLOB 27.4 pg (26.0-34.0); MEAN CORPUSCULAR VOLUME 81.6 fL (80-100); MEAN PLATELET VOLUME 8.4 fL (9.2-13.0); MONOCYTES 3.9 %; MONOCYTES ABSOLUTE 0.66 10/3/uL (0.21-1.20); NEUTROPHILS 91.3 %; NEUTROPHILS ABSOLUTE 15.63 10/3/uL (2.02-8.40); PLATELET COUNT 411 10/3/uL (150-400); RBC DISTRIBUTION WIDTH 16.2 % (12.0-16.0); WHITE BLOOD CELLS 17.1 10/3/uL (4.5-10.5)
[2017-03-14 08:25] LABS: MANUAL DIFF NO %
[2017-03-14 08:53] LABS: CALCIUM, SERUM 8.5 MG/DL (8.5-10.4); CHLORIDE, SERUM 105 MMOL/L (96-112); CO2 (CARBON DIOXIDE) 24 MMOL/L (24-34); GFR AFRICAN AMERICAN 103 ML/MIN (>=60); GFR NON AFRICAN AMERICAN 89 ML/MIN (>=60); GLUCOSE, SERUM 181 MG/DL (60-99); POTASSIUM, SERUM 3.9 MMOL/L (3.5-5.3); SODIUM, SERUM 139 MMOL/L (135-148)
[2017-03-14 08:54] LABS: BUN (BLOOD UREA NITROGEN) 28 MG/DL (6-23)
[2017-03-14 12:11] LABS: PHOSPHORUS, SERUM 4.6 MG/DL (2.5-4.5)
[2017-03-14 19:28] LABS: ASCORBIC ACID (UR NOT ORDER) NEG (NEG); BILIRUBIN, URINE NEGATIVE (NEG); KETONE, URINE NEGATIVE (NEG); WBC (NOT ORDERED) (RFLEX) 4 (0-5)
[2017-03-14 19:31] LABS: LEUKOCYTE ESTERASE(NOT OR TRACE (NEG)
[2017-03-15 04:03] LABS: A/G RATIO 0.5 (0.7-1.9); ALKALINE PHOSPHATASE 62 U/L (45-117); CALCIUM, SERUM 8.8 MG/DL (8.5-10.4); CHLORIDE, SERUM 105 MMOL/L (96-112); CO2 (CARBON DIOXIDE) 25 MMOL/L (24-34); GFR AFRICAN AMERICAN 103 ML/MIN (>=60); GFR NON AFRICAN AMERICAN 89 ML/MIN (>=60); GLOBULIN 3.7 G/DL (2.5-4.1); GLUCOSE, SERUM 163 MG/DL (60-99); POTASSIUM, SERUM 3.9 MMOL/L (3.5-5.3); SGOT(AST) 41 U/L (5-40); SGPT(ALT) 30 U/L (5-65); SODIUM, SERUM 138 MMOL/L (135-148); TOTAL BILIRUBIN 0.3 MG/DL (0-1.2); TOTAL PROTEIN 5.7 G/DL (6.0-8.5)
[2017-03-15 04:04] LABS: BUN (BLOOD UREA NITROGEN) 33 MG/DL (6-23); PHOSPHORUS, SERUM 2.7 MG/DL (2.5-4.5)
[2017-03-15 11:24] LABS: BASOPHILS 0.1 %; BASOPHILS ABSOLUTE 0.01 10/3/uL (0.0-0.16); EOSINOPHILS 0.1 %; EOSINOPHILS ABSOLUTE 0.02 10/3/uL (0.0-0.53); HEMOGLOBIN 11.4 g/dL (12.0-16.0); IMMATURE GRANULOCYTES 2.3 %; IMMATURE GRANULOCYTES ABSOLUTE 0.36 10/3/uL (0.0-0.11); LYMPHOCYTES 10.2 %; MEAN CORPUS HGB CONC 33.2 g/dL (32.0-36.0); MEAN CORPUSCULAR HEMOGLOB 27.1 pg (26.0-34.0); MEAN CORPUSCULAR VOLUME 81.5 fL (80-100); MEAN PLATELET VOLUME 8.5 fL (9.2-13.0); MONOCYTES 7.1 %; MONOCYTES ABSOLUTE 1.12 10/3/uL (0.21-1.20); NEUTROPHILS 80.2 %; NEUTROPHILS ABSOLUTE 12.57 10/3/uL (2.02-8.40); PLATELET COUNT 418 10/3/uL (150-400); RBC DISTRIBUTION WIDTH 16.5 % (12.0-16.0); RED CELL COUNT 4.21 10/6/uL (4.0-5.6); WHITE BLOOD CELLS 15.7 10/3/uL (4.5-10.5)
[2017-03-15 11:29] LABS: HEMATOCRIT 34.3 % (36.0-48.0); MANUAL DIFF NO %
[2017-03-16 04:53] LABS: BASOPHILS 0.1 %; BASOPHILS ABSOLUTE 0.01 10/3/uL (0.0-0.16); EOSINOPHILS 1.1 %; EOSINOPHILS ABSOLUTE 0.12 10/3/uL (0.0-0.53); HEMATOCRIT 30.6 % (36.0-48.0); IMMATURE GRANULOCYTES ABSOLUTE 0.22 10/3/uL (0.0-0.11); LYMPHOCYTES 14.4 %; LYMPHOCYTES ABSOLUTE 1.59 10/3/uL (0.67-4.30); MANUAL DIFF NO %; MEAN CORPUS HGB CONC 32.7 g/dL (32.0-36.0); MEAN CORPUSCULAR HEMOGLOB 26.7 pg (26.0-34.0); MEAN CORPUSCULAR VOLUME 81.6 fL (80-100); MEAN PLATELET VOLUME 8.3 fL (9.2-13.0); MONOCYTES 8.4 %; MONOCYTES ABSOLUTE 0.93 10/3/uL (0.21-1.20); NEUTROPHILS ABSOLUTE 8.18 10/3/uL (2.02-8.40); PLATELET COUNT 338 10/3/uL (150-400); RBC DISTRIBUTION WIDTH 16.7 % (12.0-16.0); RED CELL COUNT 3.75 10/6/uL (4.0-5.6); WHITE BLOOD CELLS 11.1 10/3/uL (4.5-10.5)
[2017-03-16 05:12] LABS: BUN (BLOOD UREA NITROGEN) 35 MG/DL (6-23); CALCIUM, SERUM 8.5 MG/DL (8.5-10.4); CHLORIDE, SERUM 107 MMOL/L (96-112); CO2 (CARBON DIOXIDE) 25 MMOL/L (24-34); GFR AFRICAN AMERICAN 103 ML/MIN (>=60); GFR NON AFRICAN AMERICAN 89 ML/MIN (>=60); GLUCOSE, SERUM 143 MG/DL (60-99); POTASSIUM, SERUM 3.9 MMOL/L (3.5-5.3); SODIUM, SERUM 138 MMOL/L (135-148)
[2017-03-16 05:13] LABS: PHOSPHORUS, SERUM 3.6 MG/DL (2.5-4.5)
[2017-03-16 11:49] LABS: FOLATE 11.5 NG/ML (>5.2); FREE T4 1.36 NG/DL (0.76-1.46); ULTRASENSITIVE TSH 0.981 MCIU/ML (0.358-3.740)
[2017-03-17 04:54] LABS: BASOPHILS 0.1 %; BASOPHILS ABSOLUTE 0.01 10/3/uL (0.0-0.16); EOSINOPHILS 1.5 %; EOSINOPHILS ABSOLUTE 0.19 10/3/uL (0.0-0.53); HEMATOCRIT 30.6 % (36.0-48.0); HEMOGLOBIN 10.2 g/dL (12.0-16.0); IMMATURE GRANULOCYTES 1.6 %; IMMATURE GRANULOCYTES ABSOLUTE 0.21 10/3/uL (0.0-0.11); LYMPHOCYTES 11.8 %; LYMPHOCYTES ABSOLUTE 1.53 10/3/uL (0.67-4.30); MEAN CORPUS HGB CONC 33.3 g/dL (32.0-36.0); MEAN CORPUSCULAR HEMOGLOB 27.3 pg (26.0-34.0); MEAN CORPUSCULAR VOLUME 81.8 fL (80-100); MEAN PLATELET VOLUME 8.4 fL (9.2-13.0); MONOCYTES ABSOLUTE 0.91 10/3/uL (0.21-1.20); NEUTROPHILS ABSOLUTE 10.11 10/3/uL (2.02-8.40); PLATELET COUNT 308 10/3/uL (150-400); RBC DISTRIBUTION WIDTH 16.9 % (12.0-16.0); RED CELL COUNT 3.74 10/6/uL (4.0-5.6)
[2017-03-17 04:56] LABS: MANUAL DIFF NO %
[2017-03-17 05:06] LABS: BUN (BLOOD UREA NITROGEN) 24 MG/DL (6-23); CALCIUM, SERUM 7.8 MG/DL (8.5-10.4); CHLORIDE, SERUM 103 MMOL/L (96-112); CO2 (CARBON DIOXIDE) 26 MMOL/L (24-34); GFR AFRICAN AMERICAN 103 ML/MIN (>=60); GFR NON AFRICAN AMERICAN 89 ML/MIN (>=60); GLUCOSE, SERUM 325 MG/DL (60-99); PHOSPHORUS, SERUM 3.4 MG/DL (2.5-4.5); POTASSIUM, SERUM 3.2 MMOL/L (3.5-5.3); SODIUM, SERUM 137 MMOL/L (135-148)
[2017-03-18 06:26] LABS: BASOPHILS 0.1 %; BASOPHILS ABSOLUTE 0.01 10/3/uL (0.0-0.16); EOSINOPHILS 1.6 %; EOSINOPHILS ABSOLUTE 0.24 10/3/uL (0.0-0.53); HEMATOCRIT 32.5 % (36.0-48.0); HEMOGLOBIN 10.7 g/dL (12.0-16.0); IMMATURE GRANULOCYTES 1.2 %; IMMATURE GRANULOCYTES ABSOLUTE 0.17 10/3/uL (0.0-0.11); LYMPHOCYTES 8.3 %; LYMPHOCYTES ABSOLUTE 1.22 10/3/uL (0.67-4.30); MANUAL DIFF NO %; MEAN CORPUS HGB CONC 32.9 g/dL (32.0-36.0); MEAN CORPUSCULAR HEMOGLOB 26.9 pg (26.0-34.0); MEAN CORPUSCULAR VOLUME 81.7 fL (80-100); MEAN PLATELET VOLUME 8.8 fL (9.2-13.0); MONOCYTES 9.9 %; MONOCYTES ABSOLUTE 1.46 10/3/uL (0.21-1.20); NEUTROPHILS 78.9 %; NEUTROPHILS ABSOLUTE 11.62 10/3/uL (2.02-8.40); PLATELET COUNT 323 10/3/uL (150-400); RBC DISTRIBUTION WIDTH 17.3 % (12.0-16.0); RED CELL COUNT 3.98 10/6/uL (4.0-5.6); WHITE BLOOD CELLS 14.7 10/3/uL (4.5-10.5)
[2017-03-18 06:30] LABS: BUN (BLOOD UREA NITROGEN) 24 MG/DL (6-23); CALCIUM, SERUM 8.7 MG/DL (8.5-10.4); CHLORIDE, SERUM 102 MMOL/L (96-112); CO2 (CARBON DIOXIDE) 26 MMOL/L (24-34); CREATININE 0.51 MG/DL (0.55-1.02); GFR AFRICAN AMERICAN 102 ML/MIN (>=60); GFR NON AFRICAN AMERICAN 88 ML/MIN (>=60); GLUCOSE, SERUM 121 MG/DL (60-99); PHOSPHORUS, SERUM 3.5 MG/DL (2.5-4.5); POTASSIUM, SERUM 3.5 MMOL/L (3.5-5.3); SODIUM, SERUM 136 MMOL/L (135-148)
[2017-03-18 16:51] LABS: HEMATOCRIT 33.1 % (36.0-48.0)
[2017-03-18 23:58] LABS: HEMATOCRIT 31.4 % (36.0-48.0); HEMOGLOBIN 10.5 g/dL (12.0-16.0)
[2017-03-19 06:20] LABS: BASOPHILS 0 %; EOSINOPHILS 0.6 %; HEMATOCRIT 29.9 % (36.0-48.0); HEMOGLOBIN 9.8 g/dL (12.0-16.0); IMMATURE GRANULOCYTES 0.6 %; LYMPHOCYTES 4.9 %; LYMPHOCYTES ABSOLUTE 0.77 10/3/uL (0.67-4.30); MEAN CORPUS HGB CONC 32.8 g/dL (32.0-36.0); MEAN CORPUSCULAR VOLUME 82.4 fL (80-100); MEAN PLATELET VOLUME 8.6 fL (9.2-13.0); MONOCYTES 14.3 %; MONOCYTES ABSOLUTE 2.23 10/3/uL (0.21-1.20); NEUTROPHILS 79.6 %; NEUTROPHILS ABSOLUTE 12.39 10/3/uL (2.02-8.40); PLATELET COUNT 289 10/3/uL (150-400); RBC DISTRIBUTION WIDTH 17.6 % (12.0-16.0); RED CELL COUNT 3.63 10/6/uL (4.0-5.6); WHITE BLOOD CELLS 15.6 10/3/uL (4.5-10.5)
[2017-03-19 06:23] LABS: MANUAL DIFF NO %
[2017-03-19 06:36] LABS: CALCIUM, SERUM 8.2 MG/DL (8.5-10.4); CHLORIDE, SERUM 105 MMOL/L (96-112); CO2 (CARBON DIOXIDE) 24 MMOL/L (24-34); CREATININE 0.54 MG/DL (0.55-1.02); GFR AFRICAN AMERICAN 100 ML/MIN (>=60); GFR NON AFRICAN AMERICAN 87 ML/MIN (>=60); GLUCOSE, SERUM 120 MG/DL (60-99); PHOSPHORUS, SERUM 2.9 MG/DL (2.5-4.5); POTASSIUM, SERUM 3.6 MMOL/L (3.5-5.3); SODIUM, SERUM 136 MMOL/L (135-148)
[2017-03-19 06:39] LABS: BUN (BLOOD UREA NITROGEN) 31 MG/DL (6-23); TRIGLYCERIDE 36 MG/DL (< 150)
[2017-03-19 15:52] LABS: HEMATOCRIT 30.3 % (36.0-48.0)
[2017-03-20 04:31] LABS: BASOPHILS 0.1 %; BASOPHILS ABSOLUTE 0.01 10/3/uL (0.0-0.16); EOSINOPHILS 0.4 %; EOSINOPHILS ABSOLUTE 0.07 10/3/uL (0.0-0.53); HEMATOCRIT 28.9 % (36.0-48.0); HEMOGLOBIN 9.4 g/dL (12.0-16.0); IMMATURE GRANULOCYTES 0.5 %; IMMATURE GRANULOCYTES ABSOLUTE 0.08 10/3/uL (0.0-0.11); LYMPHOCYTES 4.9 %; LYMPHOCYTES ABSOLUTE 0.79 10/3/uL (0.67-4.30); MEAN CORPUS HGB CONC 32.5 g/dL (32.0-36.0); MEAN CORPUSCULAR HEMOGLOB 26.9 pg (26.0-34.0); MEAN CORPUSCULAR VOLUME 82.6 fL (80-100); MEAN PLATELET VOLUME 8.9 fL (9.2-13.0); MONOCYTES 11.3 %; MONOCYTES ABSOLUTE 1.82 10/3/uL (0.21-1.20); NEUTROPHILS 82.8 %; PLATELET COUNT 306 10/3/uL (150-400); RBC DISTRIBUTION WIDTH 17.5 % (12.0-16.0); WHITE BLOOD CELLS 16.2 10/3/uL (4.5-10.5)
[2017-03-20 04:35] LABS: MANUAL DIFF NO %
[2017-03-20 04:41] LABS: BUN (BLOOD UREA NITROGEN) 28 MG/DL (6-23); CALCIUM, SERUM 8.6 MG/DL (8.5-10.4); CHLORIDE, SERUM 103 MMOL/L (96-112); CO2 (CARBON DIOXIDE) 24 MMOL/L (24-34); CREATININE 0.53 MG/DL (0.55-1.02); GFR AFRICAN AMERICAN 101 ML/MIN (>=60); GFR NON AFRICAN AMERICAN 87 ML/MIN (>=60); PHOSPHORUS, SERUM 2.5 MG/DL (2.5-4.5); POTASSIUM, SERUM 3.9 MMOL/L (3.5-5.3); SODIUM, SERUM 133 MMOL/L (135-148)
[2017-03-20 04:43] LABS: GLUCOSE, SERUM 158 MG/DL (60-99)
[2017-03-21 07:30] LABS: BASOPHILS 0 %; EOSINOPHILS 0 %; HEMATOCRIT 30.2 % (36.0-48.0); IMMATURE GRANULOCYTES 0.4 %; IMMATURE GRANULOCYTES ABSOLUTE 0.06 10/3/uL (0.0-0.11); LYMPHOCYTES 3.8 %; MEAN CORPUS HGB CONC 33.1 g/dL (32.0-36.0); MEAN CORPUSCULAR HEMOGLOB 27.2 pg (26.0-34.0); MEAN CORPUSCULAR VOLUME 82.1 fL (80-100); MEAN PLATELET VOLUME 9.1 fL (9.2-13.0); MONOCYTES 10.3 %; MONOCYTES ABSOLUTE 1.62 10/3/uL (0.21-1.20); NEUTROPHILS 85.5 %; NEUTROPHILS ABSOLUTE 13.43 10/3/uL (2.02-8.40); PLATELET COUNT 357 10/3/uL (150-400); RBC DISTRIBUTION WIDTH 17.8 % (12.0-16.0); RED CELL COUNT 3.68 10/6/uL (4.0-5.6); WHITE BLOOD CELLS 15.7 10/3/uL (4.5-10.5)
[2017-03-21 07:35] LABS: MANUAL DIFF NO %
[2017-03-21 07:36] LABS: ALBUMIN 1.9 G/DL (3.5-5.0); BUN (BLOOD UREA NITROGEN) 31 MG/DL (6-23); CHLORIDE, SERUM 106 MMOL/L (96-112); CO2 (CARBON DIOXIDE) 22 MMOL/L (24-34); CREATININE 0.53 MG/DL (0.55-1.02); GFR AFRICAN AMERICAN 101 ML/MIN (>=60); GFR NON AFRICAN AMERICAN 87 ML/MIN (>=60); POTASSIUM, SERUM 4.1 MMOL/L (3.5-5.3); SODIUM, SERUM 138 MMOL/L (135-148)
[2017-03-21 07:39] LABS: GLUCOSE, SERUM 228 MG/DL (60-99)
[2017-03-21 13:07] LABS: PROCALCITONIN 0.12 ng/mL (<0.5)
[2017-03-22 06:54] LABS: BASOPHILS 0.1 %; BASOPHILS ABSOLUTE 0.01 10/3/uL (0.0-0.16); EOSINOPHILS 0 %; HEMATOCRIT 30.6 % (36.0-48.0); HEMOGLOBIN 9.9 g/dL (12.0-16.0); IMMATURE GRANULOCYTES 0.6 %; LYMPHOCYTES 3.4 %; MANUAL DIFF NO %; MEAN CORPUS HGB CONC 32.4 g/dL (32.0-36.0); MEAN CORPUSCULAR HEMOGLOB 26.8 pg (26.0-34.0); MEAN CORPUSCULAR VOLUME 82.9 fL (80-100); MEAN PLATELET VOLUME 9.2 fL (9.2-13.0); MONOCYTES 5.5 %; MONOCYTES ABSOLUTE 0.97 10/3/uL (0.21-1.20); NEUTROPHILS 90.4 %; NEUTROPHILS ABSOLUTE 16.11 10/3/uL (2.02-8.40); PLATELET COUNT 444 10/3/uL (150-400); RBC DISTRIBUTION WIDTH 17.6 % (12.0-16.0); RED CELL COUNT 3.69 10/6/uL (4.0-5.6); WHITE BLOOD CELLS 17.8 10/3/uL (4.5-10.5)
[2017-03-22 07:00] LABS: CALCIUM, SERUM 9.6 MG/DL (8.5-10.4); CHLORIDE, SERUM 105 MMOL/L (96-112); CO2 (CARBON DIOXIDE) 22 MMOL/L (24-34); CREATININE 0.51 MG/DL (0.55-1.02); GFR AFRICAN AMERICAN 102 ML/MIN (>=60); GFR NON AFRICAN AMERICAN 88 ML/MIN (>=60); GLUCOSE, SERUM 229 MG/DL (60-99); PHOSPHORUS, SERUM 2.9 MG/DL (2.5-4.5); POTASSIUM, SERUM 4.7 MMOL/L (3.5-5.3); SODIUM, SERUM 135 MMOL/L (135-148)
[2017-03-22 07:02] LABS: BUN (BLOOD UREA NITROGEN) 36 MG/DL (6-23)
[2017-03-22 17:09] LABS: BASOPHILS 0 %; EOSINOPHILS 0 %; HEMATOCRIT 30.8 % (36.0-48.0); HEMOGLOBIN 10.2 g/dL (12.0-16.0); IMMATURE GRANULOCYTES 0.4 %; IMMATURE GRANULOCYTES ABSOLUTE 0.07 10/3/uL (0.0-0.11); LYMPHOCYTES 2.9 %; LYMPHOCYTES ABSOLUTE 0.48 10/3/uL (0.67-4.30); MANUAL DIFF NO %; MEAN CORPUS HGB CONC 33.1 g/dL (32.0-36.0); MEAN CORPUSCULAR HEMOGLOB 27.3 pg (26.0-34.0); MEAN CORPUSCULAR VOLUME 82.6 fL (80-100); MEAN PLATELET VOLUME 9.1 fL (9.2-13.0); MONOCYTES 7.6 %; MONOCYTES ABSOLUTE 1.24 10/3/uL (0.21-1.20); NEUTROPHILS 89.1 %; NEUTROPHILS ABSOLUTE 14.58 10/3/uL (2.02-8.40); PLATELET COUNT 438 10/3/uL (150-400); RBC DISTRIBUTION WIDTH 17.9 % (12.0-16.0); RED CELL COUNT 3.73 10/6/uL (4.0-5.6); WHITE BLOOD CELLS 16.4 10/3/uL (4.5-10.5)
[2017-03-23 06:15] LABS: BUN (BLOOD UREA NITROGEN) 43 MG/DL (6-23); CALCIUM, SERUM 9.4 MG/DL (8.5-10.4); CHLORIDE, SERUM 104 MMOL/L (96-112); CO2 (CARBON DIOXIDE) 23 MMOL/L (24-34); CREATININE 0.56 MG/DL (0.55-1.02); GFR AFRICAN AMERICAN 99 ML/MIN (>=60); GFR NON AFRICAN AMERICAN 86 ML/MIN (>=60); GLUCOSE, SERUM 185 MG/DL (60-99); PHOSPHORUS, SERUM 3.1 MG/DL (2.5-4.5); POTASSIUM, SERUM 4.9 MMOL/L (3.5-5.3); SODIUM, SERUM 134 MMOL/L (135-148); TRIGLYCERIDE 38 MG/DL (< 150)
[2017-03-24 06:14] LABS: BASOPHILS 0.1 %; BASOPHILS ABSOLUTE 0.01 10/3/uL (0.0-0.16); EOSINOPHILS 0 %; HEMATOCRIT 28.3 % (36.0-48.0); HEMOGLOBIN 9.4 g/dL (12.0-16.0); IMMATURE GRANULOCYTES ABSOLUTE 0.12 10/3/uL (0.0-0.11); LYMPHOCYTES 10.8 %; LYMPHOCYTES ABSOLUTE 1.24 10/3/uL (0.67-4.30); MEAN CORPUS HGB CONC 33.2 g/dL (32.0-36.0); MEAN CORPUSCULAR HEMOGLOB 27.4 pg (26.0-34.0); MEAN CORPUSCULAR VOLUME 82.5 fL (80-100); MEAN PLATELET VOLUME 8.5 fL (9.2-13.0); MONOCYTES 8.5 %; MONOCYTES ABSOLUTE 0.98 10/3/uL (0.21-1.20); NEUTROPHILS 79.6 %; NEUTROPHILS ABSOLUTE 9.14 10/3/uL (2.02-8.40); PLATELET COUNT 399 10/3/uL (150-400); RED CELL COUNT 3.43 10/6/uL (4.0-5.6); WHITE BLOOD CELLS 11.5 10/3/uL (4.5-10.5)
[2017-03-24 06:16] LABS: MANUAL DIFF NO %
[2017-03-24 06:31] LABS: BUN (BLOOD UREA NITROGEN) 39 MG/DL (6-23); CALCIUM, SERUM 9.5 MG/DL (8.5-10.4); CHLORIDE, SERUM 106 MMOL/L (96-112); CO2 (CARBON DIOXIDE) 25 MMOL/L (24-34); CREATININE 0.61 MG/DL (0.55-1.02); GFR AFRICAN AMERICAN 96 ML/MIN (>=60); GFR NON AFRICAN AMERICAN 83 ML/MIN (>=60); GLUCOSE, SERUM 106 MG/DL (60-99); POTASSIUM, SERUM 4.5 MMOL/L (3.5-5.3); SODIUM, SERUM 138 MMOL/L (135-148)
[2017-03-25 06:09] LABS: BUN (BLOOD UREA NITROGEN) 31 MG/DL (6-23); CALCIUM, SERUM 9.7 MG/DL (8.5-10.4); CHLORIDE, SERUM 104 MMOL/L (96-112); CO2 (CARBON DIOXIDE) 27 MMOL/L (24-34); CREATININE 0.65 MG/DL (0.55-1.02); GFR AFRICAN AMERICAN 94 ML/MIN (>=60); GFR NON AFRICAN AMERICAN 82 ML/MIN (>=60); GLUCOSE, SERUM 88 MG/DL (60-99); SODIUM, SERUM 138 MMOL/L (135-148)
== END 2017-03-25 17:14 | DRG 871 ==
LOC: ENRESERVTM → ENRESERVDT → ENRESERV → ER 16:46 → 5SO 23:48 → 4SO 23:48 → IMCU 03-10 18:46 → 4SO 03-13 10:29
PROVIDERS: Internal Medicine; Internal Medicine Infectious Disease; Student in an Organized Health Care Education/Training Program
PROC: 02HV33Z Insertion of Infusion Device into Superior Vena Cava, Percutaneous Approach (ICD-10-PCS; principal; 2017-03-11)
PROC: 3E0336Z Introduction of Nutritional Substance into Peripheral Vein, Percutaneous Approach (ICD-10-PCS; 2017-03-20)
DX: A41.9 Sepsis, unspecified organism (principal); G93.41 Metabolic encephalopathy; E43 Unspecified severe protein-calorie malnutrition; A04.7 Enterocolitis due to Clostridium difficile; K51.00 Ulcerative (chronic) pancolitis without complications; F03.91 Unspecified dementia, unspecified severity, with behavioral disturbance; Z68.41 Body mass index [BMI] 40.0-44.9, adult; R19.7 Diarrhea, unspecified; I10 Essential (primary) hypertension; I49.1 Atrial premature depolarization; Z96.651 Presence of right artificial knee joint; Z85.038 Personal history of other malignant neoplasm of large intestine; Z90.49 Acquired absence of other specified parts of digestive tract; Z90.710 Acquired absence of both cervix and uterus; Z98.890 Other specified postprocedural states; Z79.899 Other long term (current) drug therapy; Z66 Do not resuscitate; N81.10 Cystocele, unspecified
CPT/HCPCS: 36569; 70450; 70553; 71010; 74176; 80048; 80053; 80069; 81001; 82140; 82330; 82607; 82746; 82962; 83605; 83735; 84100; 84134; 84145; 84439; 84443; 84478; 84484; 84550; 85014; 85018; 85025; 85610; 85730; 87040; 87045; 87046; 87046-59; 87328; 87329; 87493; 87493-59; 87641; 87899; 87899-59; 92610-GN; 93005; 93971; 94640; 96365; 96366; 97110-GO; 97110-GP; 97161-GP; 97166-GO; 97530-GP; 97535-GO; 99285; A9270-GY; A9577; C1751; C9113; G8978-CM-GP; G8979-CL-GP; G8987-CL-GO; G8988-CK-GO; G8996-CL-GN; G8996-CM-GN; G8997-CL-GN; G8997-CM-GN; G8998-CL-GN; G8998-CM-GN; J0360; J1170; J2405; J2543; J2920; J3411; J3475